=== PATIENT | female | born 1955 | race Caucasian/White ===

== ENCOUNTER 2022-04-02 06:11 | Day surgery (SDC) | payer SELFPAY ==
[2022-03-30 11:02] VITALS: BMI 38.2
[2022-04-02] MEDS ORDERED: BACITRACIN 15 GM TUBE TOPICAL OINTMENT ONE (07:14)
[2022-04-02] MEDS ORDERED: EPINEPHrine/PF 1 MG/1 ML (1:1,000) AMPULE ONE ×2 (07:15→07:45)
[2022-04-02] MEDS ORDERED: LIDOCAINE HCL 1%, 10 MG/ML (20ML VIAL) ONE ×3 (07:16→08:09)
[2022-04-02] MEDS ORDERED: ROCURONIUM BROMIDE 50 MG/5 ML SYRINGE ONE (07:21)
[2022-04-02] MEDS ORDERED: PROPOFOL 20 ML ONE ×2 (07:21→13:48)
[2022-04-02] MEDS ORDERED: MIDAZOLAM HCL 2 MG/2 ML SINGLE DOSE VIAL ONE (07:22)
[2022-04-02] MEDS ORDERED: SODIUM CHLORIDE 0.9% P/F 10 ML VIAL IJ ONE (07:46)
[2022-04-02] MEDS ORDERED: ONDANSETRON 4 MG/2 ML VIAL ONE ×2 (09:05→17:03)
[2022-04-02] MEDS ORDERED: DEXAMETHASONE SOD PHOSPHATE 4 MG/1 ML VIAL ONE (09:05)
[2022-04-02] MEDS ORDERED: CLINDAMYCIN 600MG PREMIX IVPB 600 MG/50 ML BAG IVPB ONE ×3 (09:06→16:08)
[2022-04-02] MEDS ORDERED: metoPROLOL SUCCINATE 25 MG TAB.SR.24H (FP) PO PRN (10:00)
[2022-04-02] MEDS ORDERED: THROMBIN (BOVINE) 5,000 UNIT VIAL TP ONE (10:40)
[2022-04-02] MEDS ORDERED: TRANEXAMIC ACID 1000 MG/10 ML VIAL ONE ×2 (10:42→12:42)
[2022-04-02] MEDS ORDERED: SEVOFLURANE 250 ML BTL ONE (10:52)
[2022-04-02] MEDS ORDERED: NITROGLYCERIN 2% OINTMENT - 1GM PACKET TD ONE ×3 (15:21→17:05)
[2022-04-02] MEDS ORDERED: ACETAMINOPHEN INJECTION 100 ML IVPB ONE (16:12)
[2022-04-02] MEDS ORDERED: LACTATED RINGERS SOLUTION 1,000 ML IV SCH ×2 (17:30→18:00)
[2022-04-02] MEDS ORDERED: ONDANSETRON 4 MG/2 ML VIAL IVPUSH PRN (17:30)
[2022-04-02] MEDS ORDERED: ONDANSETRON 4 MG/2 ML VIAL IVPB PRN (17:47)
[2022-04-02] MEDS ORDERED: oxyCODONE HCL 5 MG TABLET PO PRN (17:47)
[2022-04-02] MEDS ORDERED: ALBUTEROL SO4 0.083% IH SOL 2.5 MG/3 ML VIAL.NEB. NEB ONE ×2 (18:22→18:32)
[2022-04-02] MEDS ORDERED: FLUTICASONE PROP 0.05% 16 GM NASAL SPRAY NS PRN (18:32)
[2022-04-02] MEDS ORDERED: ALBUTEROL SO4 0.083% IH SOL 2.5 MG/3 ML VIAL.NEB. NEB PRN (18:38)
[2022-04-02] MEDS: INSULIN SLIDING SCALE (NOVOLOG) 1 VIAL SQ SCH (22:08)
[2022-04-02 23:06] LABS: HIV INTERPRETATION NEGATIVE (NEGATIVE)
[2022-04-02 23:16] VITALS: RESP 17
[2022-04-02] MEDS: CLINDAMYCIN 300 MG PREMIX IVPB 300 MG/50 ML BAG IVPB SCH (23:41)
[2022-04-03] MEDS: INSULIN SLIDING SCALE (NOVOLOG) 1 VIAL SQ SCH (06:09)
[2022-04-03 06:11] VITALS: BP 122/49; PULSE 93; TEMP 98.1
[2022-04-03] MEDS: CLINDAMYCIN 300 MG PREMIX IVPB 300 MG/50 ML BAG IVPB SCH (08:58)
[2022-04-03] MEDS ORDERED: LOSARTAN 50MG/HCTZ 12.5MG 1 TAB PO SCH (10:00)
== END 2022-04-03 10:37 | disposition home or self-care (01) ==
LOC: FASU 06:11 → FM/S 21:01 → FASU 04-03 10:37
PROVIDERS: ATTEND Plastic Surgery
PROC: 0W020ZZ Alteration of Face, Open Approach (ICD-10-PCS; 2022-04-02)
PROC: 0W020ZZ Alteration of Face, Open Approach (ICD-10-PCS; principal; 2022-04-02 09:22)
PROC: 0W020ZZ Alteration of Face, Open Approach (ICD-10-PCS; 2022-04-02 09:22)
DX: L98.8 Other specified disorders of the skin and subcutaneous tissue (principal)
CPT/HCPCS: 36415; 82962; 84460; 86803; 87340; 87389; 94760